=== PATIENT | female | born 1960 | race Caucasian/White ===

== ENCOUNTER 2016-05-06 12:19 | Emergency (ER) | payer OTHER ==
[~2016-05-06] VITALS: Ht 162.6 cm; Wt 76.2 kg
[2016-05-06 12:27] VITALS: BP 145/89
== END 2016-05-06 14:09 | disposition home or self-care (01) ==
LOC: ED 12:19
DX: S80.01XA Contusion of right knee, initial encounter (principal); S50.01XA Contusion of right elbow, initial encounter; W17.89XA Other fall from one level to another, initial encounter; Y93.89 Activity, other specified; Y99.8 Other external cause status; Y92.89 Other specified places as the place of occurrence of the external cause

== ENCOUNTER → 2016-09-05 | Outpatient (CLI) | payer OTHER ==
[2016-09-05 08:56] LABS: BASOPHIL % 1.3 % (0-2); PLATELET COUNT 269 x10^3mcL (130-400); RED CELL DISTRIBUTION WIDTH 13.1 % (11.5-14.5)
[2016-09-05 09:52] LABS: ALKALINE PHOSPHATASE 70 U/L (46-116); ALT/SGPT 57 U/L (14-59); AST/SGOT 23 U/L (15-37); BILIRUBIN DIRECT 0.08 mg/dL (0.0-0.2); CARBON DIOXIDE 24.8 mmol/L (21-32); CHLORIDE SERUM 104 mmol/L (98-107); CREATININE SERUM 0.9 mg/dL (0.6-1.0); GFR1 > 60 mL/min; GLUCOSE SERUM 104 mg/dL (74-106); HDL CHOLESTEROL 42 mg/dL (40-60); POTASSIUM SERUM 4.2 mmol/L (3.5-5.1); SODIUM SERUM 140 mmol/L (136-145); T4(THYROXINE) 7.1 ug/dL (4.7-13.3); TOTAL PROTEIN, SERUM 7.2 g/dL (6.4-8.2); TRIGLYCERIDES 178 mg/dL (<150)
[2016-09-05 09:54] LABS: CHOLESTEROL 232 mg/dL (<200); CHOLESTEROL/HDL RATIO 5.5
== END | disposition home or self-care (01) ==
LOC: RD 08:14
PROVIDERS: Internal Medicine
DX: Z00.00 Encounter for general adult medical examination without abnormal findings (principal)

== ENCOUNTER 2016-09-09 15:40 | Emergency (ER) | payer OTHER ==
[2016-09-09 17:36] LABS: CALCIUM 9.5 mg/dL (8.5-10.1); CARBON DIOXIDE 25.4 mmol/L (21-32); CHLORIDE SERUM 104 mmol/L (98-107); CREATININE SERUM 0.9 mg/dL (0.6-1.0); GFR1 > 60 mL/min; GLUCOSE SERUM 97 mg/dL (74-106); POTASSIUM SERUM 4.2 mmol/L (3.5-5.1); SODIUM SERUM 139 mmol/L (136-145)
[2016-09-09 17:48] LABS: ALBUMIN 4.3 g/dL (3.4-5.0); ALKALINE PHOSPHATASE 71 U/L (46-116); ALT/SGPT 56 U/L (14-59); AMYLASE 39 U/L (25-115); AST/SGOT 21 U/L (15-37); BILIRUBIN TOTAL 0.44 mg/dL (0.20-1.00); HDL CHOLESTEROL 43 mg/dL (40-60); LIPASE 153 IU/L (73-393); T4(THYROXINE) 8.8 ug/dL (4.7-13.3); TOTAL PROTEIN, SERUM 7.5 g/dL (6.4-8.2)
[2016-09-09 17:49] LABS: CHOLESTEROL 249 mg/dL (<200)
[2016-09-09 17:52] LABS: BASOPHIL % 0.4 % (0-2); PLATELET COUNT 277 x10^3mcL (130-400); RED CELL DISTRIBUTION WIDTH 13.2 % (11.5-14.5)
[2016-09-09 18:08] LABS: UA SPECIFIC GRAVITY <=1.005 (1.005-1.035); microscopic required? YES; urine erythrocyte 1+ (NEGATIVE)
[2016-09-09 18:16] LABS: AMPHETAMINE QUAL UR NONE DETECTED (NEG <=1000)
[2016-09-09 18:28] VITALS: BP 131/86
== END 2016-09-09 18:54 | disposition left against medical advice (07) ==
LOC: ED 15:40
PROVIDERS: Emergency Medicine
DX: R07.9 Chest pain, unspecified (principal); E78.00 Pure hypercholesterolemia, unspecified; I10 Essential (primary) hypertension; E03.9 Hypothyroidism, unspecified; R42 Dizziness and giddiness
CPT/HCPCS: 83880; C9113

== ENCOUNTER → 2016-09-21 | Outpatient (CLI) | payer OTHER | LOC: CT 09-20 13:56 → MA 09-20 13:56 → CT 14:00 | PROC: BP2 Imaging, Non-Axial Upper Bones, Computerized Tomography (CT Scan) (ICD-10-PCS; principal; 2016-09-21) | DX: R07.9 Chest pain, unspecified (principal) | CPT/HCPCS: Q9967 ==

== ENCOUNTER 2016-12-15 07:55 | Day surgery (SDC) | payer OTHER ==
[~2016-12-15] VITALS: Ht 162.6 cm; Wt 74.8 kg
[2016-12-15 08:56] VITALS: BP 145/88
== END 2016-12-15 11:05 | disposition home or self-care (01) ==
LOC: GI 07:55
DX: K21.9 Gastro-esophageal reflux disease without esophagitis (principal); F17.210 Nicotine dependence, cigarettes, uncomplicated; Z80.0 Family history of malignant neoplasm of digestive organs; Z53.29 Procedure and treatment not carried out because of patient's decision for other reasons
CPT/HCPCS: J1200; J1610; J2250; J2310; J3010; J3490

== ENCOUNTER → 2017-02-24 | Outpatient (CLI) | payer OTHER | END | disposition home or self-care (01) | LOC: LB 08:16 | DX: K21.9 Gastro-esophageal reflux disease without esophagitis (principal) | CPT/HCPCS: 87338 ==

== ENCOUNTER 2017-03-28 07:18 | Day surgery (SDC) | payer OTHER ==
[~2017-03-28] VITALS: Ht 162.6 cm; Wt 74.4 kg
[2017-03-28 07:33] VITALS: BP 152/87
[2017-03-28 10:19] VITALS: BP 134/84
== END 2017-03-28 10:15 | disposition home or self-care (01) ==
LOC: DS 07:18 → OR 07:30 → DS 10:15
PROVIDERS: Internal Medicine Gastroenterology
PROC: 0DB58ZX Excision of Esophagus, Via Natural or Artificial Opening Endoscopic, Diagnostic (ICD-10-PCS; principal; 2017-03-28 07:30)
PROC: 0DB68ZX Excision of Stomach, Via Natural or Artificial Opening Endoscopic, Diagnostic (ICD-10-PCS; 2017-03-28 07:30)
DX: K21.9 Gastro-esophageal reflux disease without esophagitis (principal); E66.9 Obesity, unspecified; Z68.27 Body mass index [BMI] 27.0-27.9, adult; Z80.0 Family history of malignant neoplasm of digestive organs
CPT/HCPCS: 43235; J1200; J1610; J2250; J2310; J3010; J3490

== ENCOUNTER → 2017-07-06 | Outpatient (CLI) | payer OTHER ==
[2017-07-06 09:45] LABS: BASOPHIL % 0.6 % (0-2); PLATELET COUNT 261 x10^3mcL (130-400); RED CELL DISTRIBUTION WIDTH 13.9 % (11.5-14.5)
[2017-07-06 10:11] LABS: ALBUMIN 4.2 g/dL (3.4-5.0); ALKALINE PHOSPHATASE 81 U/L (46-116); ALT/SGPT 41 U/L (14-59); AST/SGOT 18 U/L (15-37); BILIRUBIN TOTAL 0.47 mg/dL (0.20-1.00); CALCIUM 9.1 mg/dL (8.5-10.1); CARBON DIOXIDE 30.1 mmol/L (21-32); CHLORIDE SERUM 104 mmol/L (98-107); CREATININE SERUM 0.9 mg/dL (0.6-1.0); GFR1 > 60 mL/min; GLUCOSE SERUM 96 mg/dL (74-106); HDL CHOLESTEROL 38 mg/dL (40-60); SODIUM SERUM 139 mmol/L (136-145); TOTAL PROTEIN, SERUM 7.3 g/dL (6.4-8.2)
[2017-07-06 10:12] LABS: CHOLESTEROL 223 mg/dL (<200); CHOLESTEROL/HDL RATIO 5.9; TRIGLYCERIDES 217 mg/dL (<150)
[2017-07-06 10:53] LABS: microscopic required? YES; urine erythrocyte TRACE (NEGATIVE)
== END | disposition home or self-care (01) ==
LOC: US 09:05
PROVIDERS: Internal Medicine Gastroenterology
PROC: BQ20ZZZ Computerized Tomography (CT Scan) of Right Hip (ICD-10-PCS; principal; 2017-07-06)
PROC: BW4GZZZ Ultrasonography of Pelvic Region (ICD-10-PCS; 2017-07-06)
PROC: BW40ZZZ Ultrasonography of Abdomen (ICD-10-PCS; 2017-07-06)
PROC: BH02ZZZ Plain Radiography of Bilateral Breasts (ICD-10-PCS; 2017-07-06)
DX: Z00.00 Encounter for general adult medical examination without abnormal findings (principal); M16.11 Unilateral primary osteoarthritis, right hip; Z12.31 Encounter for screening mammogram for malignant neoplasm of breast
CPT/HCPCS: 77067

== ENCOUNTER → 2017-07-14 | Outpatient (CLI) | payer OTHER | END | disposition home or self-care (01) | LOC: MI 11:30 | PROC: BR30ZZZ Magnetic Resonance Imaging (MRI) of Cervical Spine (ICD-10-PCS; principal; 2017-07-14) | DX: M54.10 Radiculopathy, site unspecified (principal) ==

== ENCOUNTER → 2017-10-10 | Outpatient (CLI) | payer OTHER ==
[2017-10-10 09:45] LABS: BASOPHIL % 0.8 % (0-2); PLATELET COUNT 242 x10^3mcL (130-400)
[2017-10-10 10:11] LABS: ALKALINE PHOSPHATASE 75 U/L (46-116); ALT/SGPT 32 U/L (14-59); AST/SGOT 13 U/L (15-37); BILIRUBIN TOTAL 0.33 mg/dL (0.20-1.00); CALCIUM 9.2 mg/dL (8.5-10.1); CHLORIDE SERUM 107 mmol/L (98-107); CREATININE SERUM 0.9 mg/dL (0.6-1.0); GFR1 > 60 mL/min; GLUCOSE SERUM 75 mg/dL (74-106); POTASSIUM SERUM 4.3 mmol/L (3.5-5.1); SODIUM SERUM 145 mmol/L (136-145); TOTAL PROTEIN, SERUM 7.3 g/dL (6.4-8.2)
[2017-10-10 10:13] LABS: BILIRUBIN DIRECT 0.06 mg/dL (0.0-0.2); BILIRUBIN TOTAL 0.31 mg/dL (0.20-1.00); TOTAL PROTEIN, SERUM 7.3 g/dL (6.4-8.2)
== END | disposition home or self-care (01) ==
LOC: CT 08:50
PROVIDERS: Internal Medicine Gastroenterology
PROC: BW20ZZZ Computerized Tomography (CT Scan) of Abdomen (ICD-10-PCS; principal; 2017-10-10)
DX: K21.9 Gastro-esophageal reflux disease without esophagitis (principal); K76.0 Fatty (change of) liver, not elsewhere classified; R10.811 Right upper quadrant abdominal tenderness; Z80.0 Family history of malignant neoplasm of digestive organs
CPT/HCPCS: 82172